=== PATIENT | female | born 1930 | race Caucasian/White ===

== ENCOUNTER 2016-05-29 12:17 | Inpatient (IN) | payer MEDICARE ==
[~2016-05-29] VITALS: Ht 157.5 cm; Wt 51.3 kg
[~2016-05-29 12:17] MED LIST: ASPIRIN 81M81 MG/TA2 PO; CALCIUM1 CAP PO; FLAX SEED OIL1000 MG PO; MULTIPLE VITAMI1 TAB PO; NORCO 325 MG-51 TAB PO; OMEGA 31000 MG PO; VITAMIN B12100 MCG PO; ZINC100 MG PO
[2016-05-29] MEDS ORDERED: MASON NATURAL1200 MG PO (12:24)
[2016-05-29 13:45] LABS: MEAN CELL VOLUME 94 fl (80.0-100.0); MEAN CORPUSCULAR HGB CONC 33 g/dl (33.0-37.0); MEAN PLATELET VOLUME 10.1 fl (7.4-10.4); PLATELET COUNT 158 K/mm3 (130-400); RED BLOOD COUNT 3.83 M/mm3 (4.10-5.30); REDCELL DISTRIBUTION WIDTH-CV 13.2 % (11.5-14.5); WHITE BLOOD COUNT 12.8 K/mm3 (4.8-10.8)
[2016-05-29 13:52] LABS: HEMATOCRIT 36.1 % (37.0-47.0); HEMOGLOBIN 11.8 g/dl (12.5-16.0); MEAN CORPUSCULAR HEMOGLOBIN 31 pg (27.0-31.0)
[2016-05-29 13:56] LABS: INR 1.1 (0.8-3.0); PROTHROMBIN TIME 11.9 SECONDS (9.7-12.8)
[2016-05-29 14:07] LABS: ADJUSTED CALCIUM 9.1 mg/dL (8.4-10.2); ALBUMIN 4.1 gm/dL (3.5-5.0); BILIRUBIN,TOTAL 0.6 mg/dL (0.0-1.0); CALCIUM 9.2 mg/dL (8.4-10.2); CREATININE, serum 0.75 mg/dL (0.52-1.25)
[2016-05-29 14:11] LABS: ADD PATHOLOGY DIFF REVIEW NO
[2016-05-29 14:21] LABS: BAND 15 % (0-10); NEUTROPHILS 79 % (42.0-75.2); TOTAL CELLS COUNTED 100
[2016-05-29 16:01] LABS: PH 6 (5-8); SQUAMOUS EPITHELIAL 0-2 /hpf; URINE APPEARANCE Clear; URINE BACTERIA None Seen /hpf; URINE BILIRUBIN Negative (NEGATIVE); URINE BLOOD Negative (NEGATIVE); URINE COLOR Yellow; URINE GLUCOSE Negative (NEGATIVE); URINE KETONE 1+ (NEGATIVE); URINE UROBILINOGEN Negative (NEGATIVE); URINE WBC 0-2 /hpf
[2016-05-29] MEDS ORDERED: TURMERIC500 MG PO (16:09)
[2016-05-29 16:28] VITALS: BP 142/67; PULSE 98; TEMP 98.5
[2016-05-29 21:52] VITALS: BP 108/63; PULSE 80; TEMP 96.8
[2016-05-30] VITALS (11 sets, daily range): BP systolic 95–133; BP diastolic 46–76; PULSE 80–99; TEMP 96.8–99.2
[2016-05-31] VITALS (14 sets, daily range): BP systolic 109–154; BP diastolic 51–80; PULSE 72–103; TEMP 97–98.9
[2016-05-31 06:51] LABS: BASO % 0.1 % (0.0-2.0); EOS % 0.3 % (0-4.0); GRAN # 5.7 (1.4-6.5); GRAN % 79.4 % (42.2-75.2); LYMPH # 0.6 (1.2-3.4); LYMPH % 7.7 % (20.0-51.0); MEAN CELL VOLUME 93 fl (80.0-100.0); MEAN CORPUSCULAR HGB CONC 33 g/dl (33.0-37.0); MEAN PLATELET VOLUME 10.8 fl (7.4-10.4); MONO # 0.9 (0.1-0.6); MONO % 11.9 % (1.7-9.3); PLATELET COUNT 95 K/mm3 (130-400); RED BLOOD COUNT 2.25 M/mm3 (4.10-5.30); REDCELL DISTRIBUTION WIDTH-CV 13.3 % (11.5-14.5); WHITE BLOOD COUNT 7.1 K/mm3 (4.8-10.8)
[2016-05-31 07:11] LABS: MEAN CORPUSCULAR HEMOGLOBIN 31 pg (27.0-31.0)
[2016-06-01 06:32] VITALS: BP 121/61; PULSE 78; TEMP 97.6
[2016-06-01 06:51] LABS: BASO % 0.3 % (0.0-2.0); EOS % 0.5 % (0-4.0); GRAN # 4.7 (1.4-6.5); GRAN % 75.1 % (42.2-75.2); LYMPH # 0.8 (1.2-3.4); MEAN CELL VOLUME 90 fl (80.0-100.0); MEAN CORPUSCULAR HGB CONC 34 g/dl (33.0-37.0); MEAN PLATELET VOLUME 11.2 fl (7.4-10.4); MONO # 0.7 (0.1-0.6); MONO % 10.8 % (1.7-9.3); PLATELET COUNT 80 K/mm3 (130-400); RED BLOOD COUNT 2.82 M/mm3 (4.10-5.30); REDCELL DISTRIBUTION WIDTH-CV 14.4 % (11.5-14.5); WHITE BLOOD COUNT 6.2 K/mm3 (4.8-10.8)
[2016-06-01 07:01] LABS: HEMATOCRIT 25.3 % (37.0-47.0); HEMOGLOBIN 8.6 g/dl (12.5-16.0); MEAN CORPUSCULAR HEMOGLOBIN 30 pg (27.0-31.0)
[2016-06-01 07:03] LABS: CALCIUM 7.8 mg/dL (8.4-10.2); CREATININE, serum 0.64 mg/dL (0.52-1.25); POTASSIUM 3.6 mmol/L (3.4-5.0)
[2016-06-01 11:20] VITALS: BP 111/45; PULSE 93; TEMP 97.5
[2016-06-01 14:08] VITALS: BP 110/53; PULSE 93; TEMP 98.2
[2016-06-01 18:04] VITALS: BP 117/57; PULSE 93; TEMP 99.8
[2016-06-01 22:34] VITALS: BP 138/80; PULSE 98; TEMP 99
[2016-06-02 06:33] LABS: HEMATOCRIT 25.9 % (37.0-47.0); HEMOGLOBIN 8.6 g/dl (12.5-16.0)
[2016-06-02 06:46] VITALS: BP 126/69; PULSE 89; TEMP 98.3
[2016-06-02] MEDS ORDERED: TYLENOL 325MG325 MG PO (09:01)
[2016-06-02] MEDS ORDERED: ASPI325T6 PO (09:01)
[2016-06-02] MEDS ORDERED: COLACE 100100 MG/CAP PO (09:02)
[2016-06-02] MEDS ORDERED: DULCOLAX S10 MG/SUPP RC (09:02)
[2016-06-02] MEDS ORDERED: SENOKOT S 50 MG1 TAB PO (09:03)
[2016-06-02] MEDS ORDERED: MILK OF MA400 MG/52 PO (09:04)
[2016-06-02] MEDS ORDERED: NORCO 325 MG-51 TAB PO (09:04)
[2016-06-02 10:00] VITALS: BP 111/67; BP 139/67; PULSE 105; PULSE 92; TEMP 98.3; TEMP 98.4
[2016-06-02] MEDS ORDERED: FERROUS SU325 MG/TAB PO (10:51)
[2016-06-02 11:10] VITALS: BP 111/67; PULSE 92; TEMP 98.3
== END 2016-06-02 12:30 | DRG 481 ==
LOC: COL.ER 12:17 → SURG 13:40
PROVIDERS: Emergency Medicine; Internal Medicine; Nurse Practitioner Family; Orthopaedic Surgery
PROC: 0QS606Z Reposition Right Upper Femur with Intramedullary Internal Fixation Device, Open Approach (ICD-10-PCS; principal; 2016-05-30 15:30)
DX: S72.21XA Displaced subtrochanteric fracture of right femur, initial encounter for closed fracture (principal); D62 Acute posthemorrhagic anemia; S01.81XA Laceration without foreign body of other part of head, initial encounter; I10 Essential (primary) hypertension; M81.0 Age-related osteoporosis without current pathological fracture; Y92.009 Unspecified place in unspecified non-institutional (private) residence as the place of occurrence of the external cause; W01.0XXA Fall on same level from slipping, tripping and stumbling without subsequent striking against object, initial encounter; Z91.81 History of falling
CPT/HCPCS: 99222-AI; 99232-AI; 99239; A9284; C1713; J0690; J2250; J2270; J2370; J2405; J2704; J3010; J7040; J7120; P9016

== ENCOUNTER 2016-09-03 17:10 | Inpatient (IN) | payer OTHER, MEDICARE ==
[2016-09-03] VITALS (13 sets, daily range): BP systolic 140–156; BP diastolic 88–117; PULSE 100–107; TEMP 98.6; O2SAT 92–96
[~2016-09-03] VITALS: Ht 157.5 cm; Wt 54.1 kg
[~2016-09-03 17:10] MED LIST changes: +ASPI325T6 PO; +COLACE 100100 MG/CAP PO; +DULCOLAX S10 MG/SUPP RC; +FERROUS SU325 MG/TAB PO; +MASON NATURAL1200 MG PO; +MILK OF MA400 MG/52 PO; +SENOKOT S 50 MG1 TAB PO; +TURMERIC500 MG PO; +TYLENOL 325MG325 MG PO
[2016-09-03 17:36] LABS: BASO % 0.3 % (0.0-2.0); EOS # 0.1 (0.0-0.7); EOS % 0.7 % (0-4.0); GRAN # 6.2 (1.4-6.5); GRAN % 80.9 % (42.2-75.2); HEMATOCRIT 40.4 % (37.0-47.0); HEMOGLOBIN 13.5 g/dl (12.5-16.0); LYMPH # 0.8 (1.2-3.4); LYMPH % 10.3 % (20.0-51.0); MEAN CELL VOLUME 90 fl (80.0-100.0); MEAN CORPUSCULAR HEMOGLOBIN 30 pg (27.0-31.0); MEAN CORPUSCULAR HGB CONC 33 g/dl (33.0-37.0); MEAN PLATELET VOLUME 10.2 fl (7.4-10.4); MONO # 0.5 (0.1-0.6); MONO % 7.1 % (1.7-9.3); PLATELET COUNT 158 K/mm3 (130-400); RED BLOOD COUNT 4.51 M/mm3 (4.10-5.30); REDCELL DISTRIBUTION WIDTH-CV 13.9 % (11.5-14.5); WHITE BLOOD COUNT 7.7 K/mm3 (4.8-10.8)
[2016-09-03 17:47] LABS: ADJUSTED CALCIUM 9.1 mg/dL (8.4-10.2); ALBUMIN 4.4 gm/dL (3.5-5.0); BILIRUBIN,TOTAL 0.6 mg/dL (0.0-1.0); CALCIUM 9.4 mg/dL (8.4-10.2); CREATININE, serum 0.68 mg/dL (0.52-1.25); POTASSIUM 3.6 mmol/L (3.4-5.0); PROTHROMBIN TIME 11.4 SECONDS (9.7-12.8); TOTAL PROTEIN 7.4 gm/dL (6.4-8.2)
[2016-09-03 17:50] LABS: PARTIAL THROMBOPLASTIN TIME 32.5 SECONDS (26.0-37.0)
[2016-09-03 18:25] LABS: PH 8 (5-8); SQUAMOUS EPITHELIAL 0-2 /hpf; URINE APPEARANCE Hazy; URINE BACTERIA None Seen /hpf; URINE BILIRUBIN Negative (NEGATIVE); URINE BLOOD Negative (NEGATIVE); URINE COLOR Straw; URINE GLUCOSE Negative (NEGATIVE); URINE KETONE Negative (NEGATIVE); URINE RBC 0-2 /hpf; URINE UROBILINOGEN Negative (NEGATIVE); URINE WBC 0-2 /hpf
[2016-09-03] MEDS ORDERED: ASPIRIN 81M81 MG/TA2 PO (18:53)
[2016-09-04] VITALS (108 sets, daily range): BP systolic 116–141; BP diastolic 60–83; PULSE 80–92; TEMP 97.4–98.8; O2SAT 89–96
[2016-09-05 01:57] VITALS: BP 135/74; PULSE 79; TEMP 99.4
[2016-09-05 05:28] VITALS: BP 149/77; PULSE 70; TEMP 99.6
[2016-09-05 07:10] VITALS: BP 156/76; PULSE 79; TEMP 97
[2016-09-05 12:40] VITALS: BP 152/78; PULSE 80; TEMP 97.7
== END 2016-09-05 13:15 | disposition home or self-care (01) | DRG 86 ==
LOC: COL.ER 17:10 → IMCU 20:07 → SURG 09-04 13:00
PROVIDERS: Emergency Medicine
DX: S06.6X0A Traumatic subarachnoid hemorrhage without loss of consciousness, initial encounter (principal); M48.56XA Collapsed vertebra, not elsewhere classified, lumbar region, initial encounter for fracture; V48.4XXA Person boarding or alighting a car injured in noncollision transport accident, initial encounter; S00.03XA Contusion of scalp, initial encounter; Z66 Do not resuscitate
CPT/HCPCS: J7030; Q9967